=== PATIENT | male | born 1970 | race Caucasian/White ===

== ENCOUNTER 2019-11-11 18:35 | Emergency (ER) | payer OTHER, SELFPAY ==
[2019-11-11 18:40] VITALS: BP 174/94; PULSE 76; RESP 18; TEMP 36.9; O2SAT 99
--- NOTE | 2019-11-11 18:47 | ED.EAR ---
HPI - Ear Problem General Chief complaint: Ear Stated complaint: Ear pain Time Seen by Provider: 11/11/19 18:47 Source: patient and RN notes reviewed History of Present Illness HPI Narrative: Patient is a 49-year-old male that presents the urgent care with complaints of left ear pain for 2 weeks. Patient states that he feels like it is swelling and his hearing is been decreased. Denies of any discharge or drainage from the ear. Denies of any fevers. Patient states he has been taking Tylenol for the pain. No other acute complaints. No acute distress noted. Patient read the plan of care. Related Data Allergies Allergy/AdvReac Type Severity Reaction Status Date / Time No Known Allergies Allergy Verified 11/11/19 18:56 Review of Systems Review of Systems: Narrative: CONSTITUTIONAL: Denies fever, chills, or sweats. EYES: Denies visual changes, redness, or discharge. ENT: Reports of left ear pain and decreased hearing CARDIOVASCULAR: Denies chest pain, palpitations, or edema. RESPIRATORY: Denies cough or dyspnea. GASTROINTESTINAL: Denies abdominal pain, nausea, vomiting, or diarrhea. GENITOURINARY: Denies dysuria or hematuria. SKIN: Denies rash or itching. MUSCULOSKELETAL: Denies back pain, joint pain, or myalgia. NEUROLOGIC: Denies headache, numbness, or weakness. All other systems reviewed are negative, except as documented in HPI. PMFSH Comments At the time of my signature, I reviewed and agree with the nursing past medical, surgical, social, and family history. There is no relevant family history pertinent to the patient complaint. Exam Narrative: Exam Narrative: GENERAL: This is a well-nourished, well-developed patient, in no apparent distress. HEAD: normocephalic, atraumatic. EYES: PERRL. Sclera clear/white. Vision is grossly intact. EARS: External ears normal, auditory canals clear and without drainage, left TM moderately injected with possible spontaneous rupture with clear notable discharge, mild erythema noted to right TMs normal without perforation. Hearing grossly intact. NOSE: External nose normal with no obvious nasal discharge, nares without redness, no rhinorrhea. THROAT: Mucous membranes moist, posterior pharynx clear. NECK: Neck supple CARDIOVASCULAR: Regular rate and rhythm without murmurs, gallops, or rubs. RESPIRATORY: Clear to auscultation. Breath sounds equal bilaterally. No wheezes, rales, or rhonchi. SKIN: warm, intact with no suspicious lesions or rash, good texture and turgor. NEURO: awake, alert, and oriented to person, place and time. There were no obvious focal neurologic abnormalities. EXTREMITIES: No clubbing, cyanosis, or edema. Course Vital Signs Vital signs: Vital Signs Temperature 98.5 F 11/11/19 18:40 Pulse Rate 76 11/11/19 18:40 Respiratory Rate 18 11/11/19 18:40 Blood Pressure 174/94 H 11/11/19 18:40 Pulse Oximetry 99 11/11/19 18:40 Temperature 98.5 F 11/11/19 18:40 Pulse Rate 76 11/11/19 18:40 Respiratory Rate 18 11/11/19 18:40 Blood Pressure 174/94 H 11/11/19 18:40 Pulse Oximetry 99 11/11/19 18:40 Reviewed?patient is informed that they may have pre-hypertension or hypertension based on a blood pressure reading in the department. I recommend the patient call the primary care provider listed on their discharge instructions or a physician of their choice this week to arrange follow-up for further evaluation of possible pre-hypertension or hypertension. Medical Decision Making MDM Narrative Medical decision making narrative: Advised the patient to complete antibiotic regimen as prescribed. May continue to use warm compress and Tylenol as needed for pain and comfort. Make sure to eat and drink with the medication. Do not put anything in the ear such as Q-tips, peroxide, water. Follow-up with PCP within 2 to 5 days or for worsening symptoms or failure to improve. Differential Diagnosis Differential Diagnosis: Pneumonia, Allergic Rhinitis, Upper respirat
== END 2019-11-11 19:10 | disposition home or self-care (01) ==
PROVIDERS: Emergency Provider Nurse Practitioner Family
DX: H66.92 Otitis media, unspecified, left ear (principal)
CPT/HCPCS: 99203; G0463